=== PATIENT | male | born 1995 | race American Indian/Alaskan Native ===

== ENCOUNTER 2024-04-15 00:20 | Emergency (ER) | payer BC, SELFPAY ==
[2024-04-15 00:28] VITALS: BP 148/80
--- NOTE | 2024-04-15 00:47 | ED.GENMED ---
History of Present Illness
General
Chief Complaint: Allergic Reaction
Source: patient
Exam Limitations: none
Time Seen by Provider: 04/15/24 00:36
Nursing documentation reviewed up to this point in time: agreed with
History of Present Illness
History of Present Illness:
This is a 29-year-old male with no significant past medical history who complains of left anterior mandibular dental pain that began a few days ago. Evaluated by his dentist today and was started on amoxicillin 500 mg 3 times daily as well as
Tylenol with codeine for dental infection. Thus far has had 2 doses of each. He plans to have root canal procedure next week. Along with Tylenol with codeine he has been taking ibuprofen 400 mg with last dose 2 to 3 hours ago.
He presents tonight with complaints of some swelling and mild numbness left anterior mandibular region. He denies sore throat, denies a sense of his throat swelling, no difficulty swallowing, no cough, no shortness of breath, no rash nor itching.
He has not noticed a fever, no headache, no chest or abdominal pain. Due to the focal sense of swelling and numbness left anterior mandibular region he was concern for potential allergic reaction. He was also concern for potential spread of the
dental infection to his brain or elsewhere.
He takes no medicines on a daily basis. No major medical problems, no history of diabetes nor history of immune compromise.
Past History
Past History
ED Past Medical History: None
ED Past Surgical History: Other (Delta teeth extraction 2023)
Social History
Tobacco: Non-smoker
Alcohol: Occasional
Drug: None
Personal: Single
Living: with family
Employment: Employed
Family History
Family History: Other (Noncontributory)
Phy Exam
Physical Exam
Physical Exam:
GENERAL: 29-year-old gentleman appears his stated age, bright and alert, pleasant, appears in no acute distress. Easily communicative. Borderline low-grade fever noted at 99.3 �F.
EYE: pupils equal and reactive. anicteric
NECK: Supple, nontender, no meningismus, no significant adenopathy.
ENT: posterior pharynx is clear, oral mucosa is moist. There is no angioedema. Tongue is midline without edema. There is very mild soft tissue swelling left anterior mandibular region with mild local tenderness to palpation. Mild tenderness left
lower cuspid. No overt cavity. There is no gingival swelling nor evidence of abscess. TM clear b/l, nares patent.
CARDIAC: Regular rate and rhythm. no murmur.
LUNGS: Clear breath sounds bilaterally, no acute respiratory distress, no wheezes/rales/rhonchi
ABDOMEN: Soft, nondistended, without focal tenderness
NEUROLOGICAL: Alert and oriented x3, no focal neuro deficits. Gait is garcia and steady.
SKIN: Warm and dry, normal color, skin intact. No rash.
MUSCULOSKELETAL: No C/C/E. peripheral pulses are full and equal b/l. No palpable tenderness.
PSYCH: Normal and appropriate interaction.
Course
Orders/Labs/Results
Orders:
Orders
04/15/24 00:47
Ketorolac [Toradol] 60 mg IM NOW STA
Vital Signs
Initial and Last Documented VS:
Initial Vital Signs
Temp Pulse Resp Pulse Ox
99.3 F 59 20 96
04/15/24 00:23 04/15/24 00:23 04/15/24 00:23 04/15/24 00:23
Last Documented Vital Signs
Temp Pulse Resp BP Pulse Ox
99.3 F 59 20 148/80 96
04/15/24 00:23 04/15/24 00:23 04/15/24 00:23 04/15/24 00:28 04/15/24 00:23
MDM/Problems Addressed
Differential Diagnosis Includes:
Patient presents with focal pain, swelling left anterior mandible region that appears consistent with focal dental infection.
There is no evidence of allergic reaction, no evidence of adverse medication reaction.
He is noted to have borderline low-grade fever but nothing in history nor exam to suggest severe infection, nothing to suggest rapid progression of infectious process.
Recommend he continue with amoxicillin, continue ibuprofen but increase dose to 800 mg every 6 hours as needed for pain, fever. Continue Tylenol with codeine as needed for moderate pain.
Recommend supportive measures, elevating head of bed when sleeping, continue with local ice.
Prompt follow-up with dentist for further evaluation.
Return precautions discussed including worsening fever, progression of focal swelling especially if swelling, pain progressed despite 48 to 72 hours of oral antibiotic.
Will give a dose of Toradol now for to assist with pain control.
At this point no indication for imaging nor laboratory studies.
*Pulse Oximetry
Patient hypoxic: no
*Critical Care Note
Total Time (30-74mins, 75-104mins- exclusive of procedures): Not Applicable
ED Attending Note
-
Portions of this chart may have been created with voice recognition software.� Occasional wrong word or��sound alike� substitutions may have occurred due to the inherent limitations of voice recognition software.
Discharge Plan
Departure
Patient Disposition: Home (Routine Discharge)
Date of Disposition: 04/15/24
Time of Disposition: 00:59
Patient with high blood pressure during this ER visit?: No
Condition: Good
Discharge Problem:
Dental abscess
Instructions: Tooth Abscess ED, Soft diet
Activity Restrictions/Additional Instructions:
Elevate head of bed on 2-3 pillows.
Continue local ice.
Continue amoxicillin 3 times daily.
Continue ibuprofen increasing dose to 800 mg every 6 hours or 4 times daily as needed for pain, fever.
Continue Tylenol with codeine as needed for moderate pain.
Follow-up with your dentist for further treatment/evaluation.
Interventions
Interventions:
*Risk Screen - Suicide Last Done: 04/15/24 00:27
*General Assessment Last Done: 04/15/24 00:42
*Neglect/Abuse Screening Last Done: 04/15/24 00:27
*ED COVID-19 Vaccine History Last Done: 04/15/24 00:27
ED- Cardiac Assessment Last Done: 04/15/24 00:42
ED- Pulmonary Assessment Last Done: 04/15/24 00:42
ED-Skin Assessment Last Done: 04/15/24 00:42
Discharge Date and Time
Print Language: HEBREW
[2024-04-15] MEDS: TORADOL 60 MG IM (01:09)
== END 2024-04-15 01:15 | disposition home or self-care (01) ==
LOC: EMR 00:20
PROVIDERS: EMERGENCY PHYSICIAN Emergency Medicine
DX: K04.7 Periapical abscess without sinus (principal)
CPT/HCPCS: 99282; 96372